=== PATIENT | male | born 1970 | race Caucasian/White ===

== ENCOUNTER 2020-11-12 08:07 | Outpatient (CLI) | payer OTHER, SELFPAY | END 2020-11-12 08:08 | disposition home or self-care (01) | LOC: ANHCOVIDVC 08:08 | PROVIDERS: PCP Emergency Medicine | DX: Z23 Encounter for immunization (principal) | CPT/HCPCS: 0001A; 91300 ==

== ENCOUNTER 2020-12-03 08:06 | Outpatient (CLI) | payer OTHER, SELFPAY | END 2020-12-03 08:07 | disposition home or self-care (01) | LOC: ANHCOVIDVC 08:06 | PROVIDERS: PCP Emergency Medicine | DX: Z23 Encounter for immunization (principal) | CPT/HCPCS: 0002A; 91300 ==

== ENCOUNTER 2021-11-08 18:02 | Observation (INO) | payer OTHER, SELFPAY ==
[2021-11-08] VITALS (8 sets, daily range): BP systolic 152–195; BP diastolic 101–127; PULSE 71–89; RESP 16–20; TEMP 36.4; O2SAT 97–99
--- NOTE | ~2021-11-08 | CT_ITS ---
EXAMINATION: CT brain wo con INDICATION: Left arm paresthesias, history of hypertension COMPARISON: None TECHNIQUE: Standard unenhanced head CT. The dose-length product (DLP) was 605.33 mGy-cm. The mA was a djusted according to patient size. Iterative reconstruction technique was employed. FINDINGS: There is no intracranial hemorrhage, acute infarction, or abnormal mass lesion. The ventric les are normal. There is no abnormal mass effect or midline shift. The lea-white matter differentiat ion is normal. The basal cisterns are patent. The orbits are normal. The paranasal sinuses, mastoids and calvarium are normal. IMPRESSION: 1. No acute intracranial abnormality. Reviewed, dictated and finalized at location F.
--- NOTE | ~2021-11-08 | XR_ITS ---
EXAMINATION: XR chest 2V DATE: 11/08/2021 18:57 INDICATION: Left-sided chest pressure TECHNIQUE: PA and lateral views of the chest are obtained. COMPARISON: None available FINDINGS: The lungs are free of acute opacities. There is no pleural effusion or pneumothorax. The ca rdiomediastinal silhouette is normal. There is mild thoracic spondylosis. IMPRESSION: 1. No acute cardiopulmonary abnormality. Reviewed, dictated and finalized at location F.
--- NOTE | 2021-11-08 18:13 | ECG_ITS ---
Measurements Intervals [place] Rate: 67 P: 34 OR: 182 QRS: 10 QRSD: 109 T: 32 QT: 363 QTc: 386 Interpretive Statements SINUS RHYTHM WITH MARKED SINUS ARRHYTHMIA NO PREVIOUS ECG AVAILABLE FOR COMPARISON Electronically Signed On 11-10-2021 13:11:30 CDT by Lazara Sepulveda M.D.
--- NOTE | 2021-11-08 18:43 | ED.CHESTPAIN ---
HPI - Chest Pain General Chief Complaint: Chest Pain <CASEY Hale Last Filed: 11/08/21 22:07> Stated Complaint: chest pain <CASEY Hale Last Filed: 11/08/21 22:07> Time Seen by Provider: 11/08/21 18:31 <CASEY Hale Last Filed: 11/08/21 22:07> Source: patient <CASEY Hale Last Filed: 11/08/21 22:07> Mode of arrival: ambulatory <CASEY Hale Last Filed: 11/08/21 22:07> Limitations: no limitations <CASEY Hale Last Filed: 11/08/21 22:07> History of Present Illness HPI narrative: This is a 51-year-old male that presents to the emergency department for hypertension. Reports over the last 3 days he has noted his blood pressure to be elevated to the 150s-180s systolic. This has been associated with some intermittent left-sided chest discomfort that he describes as a pinch. No known alleviating or exacerbating factors. Also reports he has had some paresthesias and left arm. Reports past history of hypertension, but he is not currently on any medications for this. Denies shortness of breath, lower extremity edema, or any other focal numbness or weakness. <CASEY Hale Last Filed: 11/08/21 22:07> Related Data Home Medications: Home Medications Medication Instructions Recorded Confirmed No Home Medications 11/08/21 11/08/21 <CASEY Hale Last Filed: 11/08/21 22:07> Allergies/Adverse Reactions: Allergies Allergy/AdvReac Type Severity Reaction Status Date / Time No Known Allergies Allergy Verified 11/08/21 19:44 <CASEY Hale Last Filed: 11/08/21 22:07> Review of Systems Review of Systems: CONSTITUTIONAL: Denies fever CARDIOVASCULAR: Reports chest pain. Denies edema. RESPIRATORY: Denies dyspnea. NEUROLOGIC: Denies numbness, or weakness. <CASEY Hale Last Filed: 11/08/21 22:07> All systems reviewed & are unremarkable except as noted in HPI and below <Tammy Ramires PA-C - Last Filed: 11/08/21 22:07> [facility] Past Medical History Medical History: Medical History Essential (primary) hypertension <Tammy Ramires PA-C - Last Filed: 11/08/21 22:07> Family History Family History: Family History Father , 62 No problems noted. Mother , 64 No problems noted. <Tammy Ramires PA-C - Last Filed: 11/08/21 22:07> Social History Social History: Social History Smoking packs per day: 1 Smoking cigarettes per day: 20.0 Years smoked: 30 Smoking pack-years: 30.00 Smoking status: Current every day smoker Tobacco type: cigarettes Alcohol intake: current Drinks per week: 6 Alcohol use details: Patient drinks a six pack on Monday's Substance use: never <Tammy Ramires PA-C - Last Filed: 11/08/21 22:07> Exam Narrative: GENERAL: Well-appearing, well-nourished, and in no acute distress. HEAD: Normocephalic, atraumatic. EYES: PERRLA and EOMI. ENT: Nares clear, no rhinorrhea or epistaxis. Mucous membranes moist. Oropharynx without tonsillar hypertrophy exudate or other lesions. Bilateral TMs pearly lea non-bulging NECK: Supple. No adenopathy or masses. CHEST: Clear to auscultation. No respiratory distress. No wheezes rales or rhonchi HEART: Regular rate and rhythm. No murmur heard. Normal peripheral pulses. EXTREMITIES: Normal range of motion. No edema. Strength equal in bilateral upper extremities (5/5) SKIN: Warm, dry, no rash. NEURO: No focal deficits. Alert and oriented x3. Cranial nerves II through XII grossly intact PSYCH: Normal mood and affect <Tammy Ramires PA-C - Last Filed: 11/08/21 22:07> Course NURSERYPERSON/PA Physician Supervision Patient seen and examined. No acute distress Regular rate and rhythm
[2021-11-08 19:35] LABS: Basophils Absolute Auto 0.1 K/mm3 (0.0-0.1); Basophils Percent Auto 0.7 % (0.2-1.2); Eosinophils Absolute Auto 0.2 K/mm3 (0-0.3); Eosinophils Percent Auto 1.9 % (0-4.4); Hematocrit 48.2 % (42.0-52.0); Hemoglobin 15.9 g/dL (14.0-18.0); Immature Granulocyte Absolute 0.03 K/mm3 (0.00-0.031); Immature Granulocyte Percent A 0.3 % (0-0.5); Lymphocytes Absolute Auto 2.37 K/mm3 (0.9-3.2); Lymphocytes Percent Auto 22.1 % (18.3-44.2); Mean Corpuscular Hemoglobin 29.4 pg (26-34); Mean Corpuscular Volume 89.1 fl (80-100); Mean Platelet Volume 11.1 fl (7.4-10.4); Monocytes Absolute Auto 0.8 K/mm3 (0.1-0.6); Monocytes Percent Auto 7.6 % (2.6-8.5); Neutrophils Absolute Auto 7.3 K/mm3 (1.3-6.7); Neutrophils Percent Auto 67.4 % (45.5-73.1); Platelet Count Result 238 k/mm3 (150-375); Red Blood Count 5.41 M/mm3 (4.6-6.20); White Blood Count 10.7 K/mm3 (4.5-10.0)
[2021-11-08] MEDS: hydrALAZINE HCL 20 MG/ML VIAL 10 MG IV PUSH (19:36)
[2021-11-08 19:43] LABS: Alanine Aminotransferase 25 U/L (4-50); Alkaline Phosphatase 45 U/L (38-126); Anion Gap 7 mmol/L (8-16); Aspartate Amino Transferase 29 U/L (17-59); Blood Urea Nitrogen 22 mg/dL (9-20); Calcium 8.6 mg/dL (8.4-10.2); Carbon Dioxide 26 mmol/L (22-30); Chloride 108 mmol/L (98-107); Estimated CRCL calculation 69 ml/min; Estimated Glomerular Filt Rate 50; Glucose 100 mg/dL (65-110); Lipase 84 U/L (23-300); Potassium 3.7 mmol/L (3.4-5.0); Sodium 141 mmol/L (137-145)
[2021-11-08 19:45] LABS: Prothrombin Time 12.8 Seconds (11.1-14.7)
[2021-11-08 19:46] LABS: Partial Thromboplastin Time 24.4 SECONDS (22.3-36.8)
[2021-11-08 19:55] LABS: Troponin I < 0.012 ng/mL (0.000-0.034)
[2021-11-08] MEDS: LABETALOL HCL INJ 100 MG/20 ML VIAL 20 MG IV PUSH (20:58)
--- NOTE | 2021-11-08 22:02 | PM.IMHP ---
H&P: HPI History of Present Illness Date/Time: 11/08/21 22:02 Chief Complaint: CHEST PAIN. Narrative: This is a 51-year-old male with past medical history significant for hypertension, tobacco dependence. Patient presented to the emergency room due to chest pain for the last 2 days or so, blurry vision, frontal headache, high blood pressure, pain is localized to the epigastric area it is nonradiating rate said I had 5 to 6/10 in intensity it is pressure-like, denies lightheadedness, nausea, vomiting, shortness of breath, cough, sputum production, no fevers no rigors no chills, no leg swelling, no calves pain, no PND, no orthopnea. Preliminary workup has been essentially nonrevealing however patient was found to have elevated blood pressure upon arrival to emergency room with systolic ranging from the 180s to 190s and diastolic ranging in the 100s. Patient has been admitted for further evaluation, management and treatment. Review of Systems Review of Systems: Chest pain localized to retrosternal and epigastric area Constitutional: Constitutional: Denies chills, Denies fatigue, Denies fever(s), Denies malaise, Denies night sweats and Denies weakness Eyes: Eyes: Reports blurry vision ENT: Denies dysphagia, Denies vertigo, Denies dizziness, Denies nasal congestion, Denies nasal discharge, Denies nasal obstruction and Denies odynophagia Cardiovascular: Cardiovascular: Reports chest pain, Denies pedal edema, Denies edema, Denies leg edema, Denies lightheadedness, Denies radiating jaw, neck or arm pain, Denies palpitations, Denies dyspnea on exertion and Denies orthopnea Respiratory: Respiratory: Denies cough, Denies excessive phlegm production and Denies wheezing Gastrointestinal: Gastrointestinal: Denies dyspepsia, Denies heartburn, Denies nausea and Denies vomiting Genitourinary: Genitourinary: Denies dysuria and Denies flank pain Integumentary/Breasts: Skin/Breast: Denies rash Neurologic: Denies focal weakness and Denies Sensory deficit (Neuro) Psychiatric: Psychiatric: Reports no additional psychiatric complaints and Reports as per HPI Endocrine: Endocrine: Denies cold intolerance, Denies fatigue, Denies flushing, Denies heat intolerance, Denies polyphagia, Denies polydipsia and Denies palpitations Hematologic/Lymphatic: Hematologic/Lymphatic: Reports no additional hematologic/lymphatic complaints and Reports as per HPI Allergic/Immunologic: Allergic/Immunologic: Reports no additional allergic/immunologic complaints and Reports as per HPI PMFSH Past Medical History Medical History Essential (primary) hypertension Family History Family History Father , 62 No problems noted. Mother , 64 No problems noted. Social History Social History Smoking packs per day: 0.5 Smoking cigarettes per day: 10.0 Years smoked: 20 Smoking pack-years: 10.00 Smoking status: Heavy tobacco smoker Tobacco type: cigarettes Second hand tobacco smoke exposure: Yes Alcohol intake: current Drinks per week: 6 Alcohol use details: Patient drinks a six pack on Monday' Substance use: never Spiritual care concerns: No Meds Home Medications and Allergies Home Medications Medication Instructions Recorded Confirmed Type No Home Medications 11/08/21 11/08/21 History Allergies Allergy/AdvReac Type Severity Reaction Status Date / Time No Known Allergies Allergy Verified 11/08/21 19:44 Vital Signs Vital Signs - 24 hr 11/08/21 18:21 11/08/21 19:30 11/08/21 19:42 Temperature 97.6 F Pulse Rate 88 71 84 Respiratory Rate 16 20 Blood Pressure 179/119 H 184/127 H Pulse Oximetry 99 97 11/08/21 19:46 11/08/21 21:01 11/08/21 21:36 Temperature Pulse Rate 85 89 80 Respiratory Rate 16 18 Blood Pressure 19
[2021-11-08 22:35] LABS: Troponin I < 0.012 ng/mL (0.000-0.034)
[2021-11-09] VITALS (16 sets, daily range): BP systolic 126–186; BP diastolic 78–104; PULSE 66–104; RESP 16–22; TEMP 36.3–37.3; O2SAT 95–100; BMI 33.7
--- NOTE | 2021-11-09 | ECHO_ITS ---
Patient Info Name: Mohinder Carpenter Age: 51 years : 1970 Gender: Male Ht: 72 in Wt: 249 lbs BSA: 2.43 m2 HR: 80 bpm BP: 158 / 104 mmHg Heart Rhythm: Sinus Rhythm Technical Quality: Fair Exam Date: 11/09/2021 12:53 PM Exam Location: [facility] Pulmonary Patient Status: Inpatient Admit Date: 11/08/2021 Staff Ordering Physician: Juani Alvarenga MD Utilities Service Investigator: Soraya Baker RDCS Attending Provider: Martinez Long MD Exam Type: CA echo doppler color flow Study Info Indications - uncontrolled htn Complete two-dimensional, color flow and Doppler transthoracic echocardiogram is performed. Summary 1. Complete two-dimensional, color flow and Doppler transthoracic echocardiogram is performed. 2. Left ventricular chamber dimension is normal. 3. Left ventricular systolic function is normal, estimated at 65-70%. 4. There is mildly increased left ventricular wall thickness. 5. The left ventricular diastolic function is grade I diastolic dysfunction. 6. No pulmonary hypertension, estimated pulmonary arterial systolic pressure is 16 mmHg. Left Ventricle Tissue doppler E/e' is not performed. Left ventricular chamber dimension is normal. Left ventricular systolic function is normal, estimated at 65-70%. There is mildly increased left ventricular wall thickness. The left ventricular diastolic function is grade I diastolic dysfunction. Right Ventricle Right ventricular systolic function is normal and with normal TAPSE 2.1 cm. Right ventricular chamber dimension is normal. Left Atria Left atrial chamber dimension is normal. Right Atria Right atrial chamber dimension is normal. Aortic Valve The aortic valve is trileaflet. There is no aortic valve stenosis. There is no aortic valve regurgitation. Pulmonic Valve There is no pulmonic regurgitation. Mitral Valve There is no mitral valve stenosis. There is no mitral valve regurgitation. Tricuspid Valve There is no tricuspid valve regurgitation. No pulmonary hypertension, estimated pulmonary arterial systolic pressure is 16 mmHg. Pericardium/Pleural There is no pericardial effusion. Inferior Vena Cava Normal inferior vena cava with >50% collapse upon inspiration consistent with normal right atrial pressure, 5 mmHg. Aorta The aortic root size at the sinus of Valsalva is normal. Left Ventricular Outflow Tract Name Value Normal LVOT 2D LVOT Diameter 2.1 cm LVOT Doppler LVOT Peak Gradient 4 mmHg LVOT Mean Gradient 2 mmHg LVOT VTI 18 cm LVOT VTI/AV VTI Ratio 0.8 LVOT Stroke Volume 65 ml LVOT CO 5.9 l/min LVOT CI 2.4 l/min/m2 Pulmonic Valve Name Value Normal RVOT Doppler
[2021-11-09 01:03] LABS: Troponin I < 0.012 ng/mL (0.000-0.034)
[2021-11-09] MEDS: lisinopriL 20 MG TABLET 40 MG PO (01:43)
[2021-11-09] MEDS: hydrALAZINE HCL 20 MG/ML VIAL 10 MG IV PUSH ×2 (01:43→11:27)
--- NOTE | 2021-11-09 03:10 | PC.NURSE ---
This patient, Mohinder Carpenter, was admitted to IMU status, and placed in IMU Room 205-01. Patient/family oriented to hospital policies and general routines including ID bracelet, bed and alarms, visiting hours, pain management, procedures, bathroom and other care routines, personal items, smoking policy, room service/diet, and visiting hours. Valuables list has been completed. Information on how to activate the Rapid Response Team has been discussed. Patient/Family are encouraged to report perceived risks to care and to ask questions if they do not understand what they are told or what they should do.
--- NOTE | 2021-11-09 16:36 | PM.IMPN ---
Progress Note: A&P Assessment and Plan (1) Hypertensive urgency: Code(s): I16.0 - Hypertensive urgency Status: Acute Assessment and Plan: Admitted to IMU Started on lisinopril 40 p.o. daily Patient has been lisinopril before but was not taking it Considering adding a calcium channel prem as 2nd agent Continue to monitor Cardiology consult Echocardiogram in a.m. 11/09/2021 interval history: 51 year old male with history of hypertension patient states he has not taken his medication close to 10 years he presented emergency department with complaint of chest pain and urgently elevated her blood pressure off systolic 180-190, patient received labetalol and lisinopril upon arrival which did improve his blood pressure, will start the patient on amlodipine 5 mg q.day, patient blood pressure is trending down, recent cardiac enzymes are negative there are no acute changes on EKG DE is ruled out, his chest pain is improved, with a cardiac echo if there are no significant structural changes will discharge the patient home tomorrow. (2) Chest pain: Qualifiers: Chest pain type: unspecified Qualified Code(s): R07.9 - Chest pain, unspecified Code(s): R07.9 - Chest pain, unspecified Status: Acute Assessment and Plan: Likely secondary to uncontrolled hypertension EKG with no acute changes Continue to monitor (3) Essential (primary) hypertension: Code(s): I10 - Essential (primary) hypertension Status: Acute Assessment and Plan: Continue lisinopril Continue to monitor (4) Tobacco dependence: Code(s): F17.200 - Nicotine dependence, unspecified, uncomplicated Status: Acute Assessment and Plan: Nicotine patch as needed Subjective Date/time seen: 11/09/21 16:36 Chief Complaint: CHEST PAIN. Narrative: This is a 51-year-old male with past medical history significant for hypertension, tobacco dependence. Patient presented to the emergency room due to chest pain for the last 2 days or so, blurry vision, frontal headache, high blood pressure, pain is localized to the epigastric area it is nonradiating rate said I had 5 to 6/10 in intensity it is pressure-like, denies lightheadedness, nausea, vomiting, shortness of breath, cough, sputum production, no fevers no rigors no chills, no leg swelling, no calves pain, no PND, no orthopnea. Preliminary workup has been essentially nonrevealing however patient was found to have elevated blood pressure upon arrival to emergency room with systolic ranging from the 180s to 190s and diastolic ranging in the 100s. Patient has been admitted for further evaluation, management and treatment. 11/09/2021 interval history: 51 year old male with history of hypertension patient states he has not taken his medication close to 10 years he presented emergency department with complaint of chest pain and urgently elevated her blood pressure off systolic 180-190, patient received labetalol and lisinopril upon arrival which did improve his blood pressure, will start the patient on amlodipine 5 mg q.day, patient blood pressure is trending down, recent cardiac enzymes are negative there are no acute changes on EKG DE is ruled out, his chest pain is improved, with a cardiac echo if there are no significant structural changes will discharge the patient home tomorrow. Review of Systems Review of Systems: All systems reviewed & are unremarkable except as noted in HPI and below Exam Narrative: moderately obese Patient is comfortable, NAD HEENT: eyes are clear and none icteric LUNGS: normal respiratory effort ABD: not distended Lower extremities: no edema SKIN: nonjaundiced Neuro: grossly intact. Objective Data Vital Signs Vital Signs: Vital Signs - 24 hr 11/08/21 18:21 11/08/21 19:30 11/08/21 19:42 Temperature 97.6 F Pulse Rate 88 71 84 Respiratory Rate 16 20 Blood Pressure 179/119 H 184/127 H Pulse Oximetry 99 97 11/08/21
--- NOTE | 2021-11-09 18:56 | PC.NURSE ---
This patient, Mohinder Carpenter, was transferred to [facility] on 11/09/21 at 1800. Personal belongings sent with patient. Report given to Hoda BANG. Appropriate documentation sent with patient.
[2021-11-09] MEDS: HEPARIN SODIUM 5,000 UNITS/ML VIAL 5000 UNITS SUB-Q (20:15)
[2021-11-10] VITALS: PULSE 70; PULSE 78; RESP 16; O2SAT 98
[2021-11-10 03:23] VITALS: BP 135/93; PULSE 69; RESP 14; TEMP 36.6; O2SAT 98
[2021-11-10 04:00] VITALS: PULSE 63; RESP 14; O2SAT 98
[2021-11-10 05:47] LABS: Hematocrit 49.1 % (42.0-52.0); Hemoglobin 15.7 g/dL (14.0-18.0); Mean Corpuscular Hemoglobin 29.6 pg (26-34); Mean Corpuscular Volume 92.5 fl (80-100); Mean Platelet Volume 10.7 fl (7.4-10.4); Platelet Count Result 251 k/mm3 (150-375); Red Blood Count 5.31 M/mm3 (4.6-6.20); Red Cell Distribution Width 13.2 % (11.5-14.5)
[2021-11-10 05:58] LABS: Anion Gap 4 mmol/L (8-16); Blood Urea Nitrogen 19 mg/dL (9-20); Calcium 8.5 mg/dL (8.4-10.2); Carbon Dioxide 28 mmol/L (22-30); Chloride 110 mmol/L (98-107); Estimated CRCL calculation 101 ml/min; Estimated Glomerular Filt Rate > 60; Glucose 107 mg/dL (65-110); Potassium 4.3 mmol/L (3.4-5.0); Sodium 142 mmol/L (137-145)
[2021-11-10 08:00] VITALS: PULSE 97
[2021-11-10] MEDS: amLODIPine BESYLATE 5 MG TABLET PO (08:34)
[2021-11-10] MEDS: HEPARIN SODIUM 5,000 UNITS/ML VIAL 5000 UNITS SUB-Q (08:34)
--- NOTE | 2021-11-10 09:03 | PM.DS ---
DS: Admitting Diagnosis Discharge Date 11/10/2021 Admitting Diagnosis Chest pain DS: Discharge Diagnosis Discharge Diagnosis (1) Hypertensive urgency: Code(s): I16.0 - Hypertensive urgency Status: Acute Assessment and Plan: Admitted to IMU Started on lisinopril 40 p.o. daily Patient has been lisinopril before but was not taking it Considering adding a calcium channel prem as 2nd agent Continue to monitor Cardiology consult Echocardiogram in a.m. 11/09/2021 interval history: 51 year old male with history of hypertension patient states he has not taken his medication close to 10 years he presented emergency department with complaint of chest pain and urgently elevated her blood pressure off systolic 180-190, patient received labetalol and lisinopril upon arrival which did improve his blood pressure, will start the patient on amlodipine 5 mg q.day, patient blood pressure is trending down, recent cardiac enzymes are negative there are no acute changes on EKG SC is ruled out, his chest pain is improved, with a cardiac echo if there are no significant structural changes will discharge the patient home tomorrow. (2) Chest pain: Qualifiers: Chest pain type: unspecified Qualified Code(s): R07.9 - Chest pain, unspecified Code(s): R07.9 - Chest pain, unspecified Status: Acute Assessment and Plan: Likely secondary to uncontrolled hypertension EKG with no acute changes Continue to monitor (3) Essential (primary) hypertension: Code(s): I10 - Essential (primary) hypertension Status: Acute Assessment and Plan: Continue lisinopril Continue to monitor (4) Tobacco dependence: Code(s): F17.200 - Nicotine dependence, unspecified, uncomplicated Status: Acute Assessment and Plan: Nicotine patch as needed DS: Summary Hospital Course Reason for hospitalization: Chief Complaint: CHEST PAIN. Narrative: This is a 51-year-old male with past medical history significant for hypertension, tobacco dependence. Patient presented to the emergency room due to chest pain for the last 2 days or so, blurry vision, frontal headache, high blood pressure, pain is localized to the epigastric area it is nonradiating rate said I had 5 to 6/10 in intensity it is pressure-like, denies lightheadedness, nausea, vomiting, shortness of breath, cough, sputum production, no fevers no rigors no chills, no leg swelling, no calves pain, no PND, no orthopnea. Preliminary workup has been essentially nonrevealing however patient was found to have elevated blood pressure upon arrival to emergency room with systolic ranging from the 180s to 190s and diastolic ranging in the 100s. Patient has been admitted for further evaluation, management and treatment. Hospital Course: 11/09/2021 interval history: 51 year old male with history of hypertension patient states he has not taken his medication close to 10 years he presented emergency department with complaint of chest pain and urgently elevated her blood pressure off systolic 180-190, patient received labetalol and lisinopril upon arrival which did improve his blood pressure, will start the patient on amlodipine 5 mg q.day, patient blood pressure is trending down, recent cardiac enzymes are negative there are no acute changes on EKG SC is ruled out, his chest pain is improved, with a cardiac echo if there are no significant structural changes will discharge the patient home tomorrow. today patient remains clinically stable, started the patient on amlodipine, blood pressure is trending, is cardiac echo is essentially normal will discharge the patient today. Status at Discharge Functional status at discharge: independent ambulation Overall status at discharge: patient is back to baseline Time Spent with Patient Time attestation: Total time spent providing and/or coordinating discharge services: Patient was seen and examined at the time of the discharge
== END 2021-11-10 10:11 | disposition home or self-care (01) ==
LOC: ANHED 22:04 → ANHIMU 11-09 03:09 → ANH3MED 11-10 09:03 → ANHIMU 11-11 15:18
PROVIDERS: Emergency Medicine; Admitting Provider Internal Medicine; Emergency Provider Emergency Medicine; PCP Emergency Medicine; Visit Provider Family Medicine
DX: I16.0 Hypertensive urgency (principal); R07.9 Chest pain, unspecified; I10 Essential (primary) hypertension; F17.210 Nicotine dependence, cigarettes, uncomplicated
CPT/HCPCS: 36415; 70450; 71046; 80048; 80053; 83690; 84484; 85025; 85027; 85610; 85730; 93005; 93306; 96372; 96374; 96375; 96376; 99285; A9270; G0378; J0360; J1644

== ENCOUNTER 2022-11-04 10:09 | Outpatient (CLI) | payer OTHER, SELFPAY ==
[2022-11-04 11:29] LABS: Alanine Aminotransferase 25 U/L (6-50); Albumin Level 4.1 g/dL (3.5-5.1); Alkaline Phosphatase 48 U/L (38-126); Anion Gap 7 mmol/L (8-16); Aspartate Amino Transferase 20 U/L (17-59); Bilirubin,Total 1.4 mg/dL (0.2-1.3); Blood Urea Nitrogen 18 mg/dL (9-20); Calcium 8.5 mg/dL (8.4-10.2); Carbon Dioxide 28 mmol/L (22-30); Chloride 106 mmol/L (98-107); Cholesterol 129 mg/dL (0-200); Estimated Glomerular Filt Rate > 60; Glucose 118 mg/dL (65-110); HDL Direct 28 mg/dL; Potassium 3.4 mmol/L (3.4-5.0); Sodium 141 mmol/L (137-145); Triglycerides 71 mg/dL (<150)
[2022-11-04 11:41] LABS: LDL Cholesterol Direct 84 mg/dL
== END 2022-11-04 10:10 | disposition home or self-care (01) ==
LOC: ANHLAB 10:12
PROVIDERS: PCP Emergency Medicine; Visit Provider Emergency Medicine
DX: I10 Essential (primary) hypertension (principal); Z12.5 Encounter for screening for malignant neoplasm of prostate; Z13.220 Encounter for screening for lipoid disorders
CPT/HCPCS: 36415; 80053; 80061; 84153; G0103

== ENCOUNTER 2023-06-09 09:09 | Emergency (ER) | payer OTHER, SELFPAY ==
--- NOTE | ~2023-06-09 | CT_ITS ---
EXAMINATION: CT soft tissue neck w con DATE: 06/09/2023 11:18 INDICATION: One week of right posterior ear pain extending into the neck TECHNIQUE: Computed tomography (CT) of the neck was performed with 75 mL Omnipaque-350 intravenous co ntrast. Automated exposure control and iterative reconstruction technique were employed. The dose-mohan gth product was 633.32 mGy-cm. COMPARISON: Head CT dated 11/08/2021 FINDINGS: Orbits are normal. Visualized portions of the brain are normal. The paranasal sinuses are clear. Like ly chronic bilateral nasal bone fractures which are deviated slightly towards the left. There is righ tward bowing of the nasal septum which conforms to the contours of the turbinates. Bilateral mastoid air cells and middle ear cavities are also clear. Bilateral temporomandibular joints are normal align ment with minimal osteoarthritis. There is a large expansile nonaggressive appearing lytic lesion lik brandt representing a dentigerous cyst surrounding the crown of the impacted posterior most left mandibu lar molar. This fills the medullary space of the posterior body of the left mandible endosteal scallo ping, mild on the lateral and inferior cortices and more prominently on the cephalad and particularly inwardly bowed medial cortices. Bilateral submandibular and parotid glands are symmetric. There are couple right thyroid nodules, the larger and more density nodule measures 1.7 cm in maximal diameter. There are scattered normal-sized lymph nodes in the neck, no lymphadenopathy. No masses identified. The vasculature is patent and normal in caliber. Airway is unremarkable. Superior mediastinum is unr emarkable. Lung apices are normal. Mild cervicothoracic dextrocurvature with minimal spondylosis. IMPRESSION: 1. No etiology identified for reported right posterior ear and neck pain. The bilateral mastoid air c ells and middle ear cavities are clear. 2. 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 Given the size and degree of cortical erosion is replaced the endplate increased risk of pathol ogic fracture at this location. 3. A couple right thyroid nodules the larger measuring 1.7 cm. Consider follow-up thyroid ultrasound for risk stratification. Reviewed, dictated and finalized at location A. [facility] IMPRESSION: 1. No etiology identified for reported right posterior ear and neck pain. The b ilateral mastoid air cells and middle ear cavities are clear. 2. 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 Given the size and degree of cortical erosion is re placed the endplate increased risk of pathologic fracture at this location. 3. A couple right thyroid nodules the larger measuring 1.7 cm. Consider follow- up thyroid ultrasound for risk stratification.
[2023-06-09 09:13] VITALS: BP 143/92; PULSE 76; RESP 16; TEMP 36.8; O2SAT 99
--- NOTE | 2023-06-09 10:13 | ED.EAR ---
HPI - Ear Problem General Chief complaint: Ear <CASEY Paulino Last Filed: 06/09/23 18:50> Stated complaint: ear pain <CASEY Paulino Last Filed: 06/09/23 18:50> Time Seen by Provider: 06/09/23 09:19 <CASEY Paulino Last Filed: 06/09/23 18:50> Source: patient <CASEY Paulino Last Filed: 06/09/23 18:50> Mode of arrival: ambulatory <CASEY Paulino Last Filed: 06/09/23 18:50> Limitations: no limitations <CASEY Paulino Last Filed: 06/09/23 18:50> History of Present Illness HPI Narrative: Patient is a 52 y/o male who presents to the ED with c/o R ear pain. Patient reports having pain to his right posterior inferior ear, radiating around his jaw/neck for the last 1 week. Pain is intermittent, states pain occurs at random times. Denies known aggravating factors. Does worsen with laying on R side of face. Denies significant pain with chewing/eating/opening and closing mouth. Describes as throbbing/pressure. Does not describe pain as electric shock type pain. Does report some improvement with ibuprofen, which he took prior to arrival. Denies ear drainage, fevers, recent illness, congestion/rhinorrhea. No dental issues/dental pain. <CASEY Paulino Last Filed: 06/09/23 18:50> Related Data Allergies/adverse reactions: Allergies Allergy/AdvReac Type Severity Reaction Status Date / Time No Known Allergies Allergy Verified 06/09/23 09:09 <CASEY Paulino Last Filed: 06/09/23 18:50> Review of Systems Review of Systems: CONSTITUTIONAL: Denies fever, chills, or sweats. ENT: See HPI. RESPIRATORY: Denies cough or dyspnea. SKIN: Denies rash or itching. NEUROLOGIC: Denies headache, numbness, or weakness. <CASEY Paulino Filed: 06/09/23 18:50> All systems reviewed & are unremarkable except as noted in HPI and below <Virginia Clarke PA-C - Last Filed: 06/09/23 18:50> [facility] Past Medical History Medical History: Medical History Essential (primary) hypertension <Virginia Clarke PA-C - Last Filed: 06/09/23 18:50> Family History Family History: Family History Father , 62 No problems noted. Mother , 64 No problems noted. <Virginia Clarke PA-C - Last Filed: 06/09/23 18:50> Social History Social History: Social History Smoking packs per day: 0.5 Smoking cigarettes per day: 10.0 Years smoked: 20 Smoking pack-years: 10.00 Smoking status: Heavy tobacco smoker Tobacco type: cigarettes Second hand tobacco smoke exposure: Yes Alcohol intake: current Drinks per week: 6 Alcohol use details: Patient drinks a six pack on Monday's Substance use: never Spiritual care concerns: No <Virginia Clarke PA-C - Last Filed: 06/09/23 18:50> Exam Narrative: GENERAL: Well appearing, obese with BMI of 33.9, non-toxic, in no acute distress. HEAD: Normocephalic, atraumatic. ENT: External ear normal. R TM appears slightly bulging but non erythematous. Small amount of cerumen present in ear canal, no swelling or erythema of EAC. No drainage. No significant tenderness with manipulation of ear pinna. No pain with palpation of tragus. No significant TTP along posterior ear. No swelling/erythema/bulging of mastoid. No significant TMJ tenderness. No tenderness along upper lower gumline on the right side, no fractured teeth or evidence of focal abscess. L ear and TM appear unremarkable. NECK: Supple. No adenopathy palpated along submandibular region or anterior chain, no masses. RESPIRATORY: Airway patent, respirations nonlabored. CARDIOVASCULAR: Regular rate and rhythm without murmurs, rubs, or gallops. Radial pul
[2023-06-09 10:45] LABS: Basophils Absolute Auto 0.1 K/mm3 (0.0-0.1); Basophils Percent Auto 0.6 % (0.2-1.2); Eosinophils Absolute Auto 0.2 K/mm3 (0-0.3); Eosinophils Percent Auto 1.9 % (0-4.4); Hematocrit 45.4 % (42.0-52.0); Hemoglobin 14.9 g/dL (14.0-18.0); Immature Granulocyte Percent A 0.9 % (0-0.5); Lymphocytes Absolute Auto 2.45 K/mm3 (0.9-3.2); Mean Corpuscular HGB Conc 32.8 g/dl (32-36); Mean Corpuscular Hemoglobin 29.2 pg (26-34); Mean Platelet Volume 10.4 fl (7.4-10.4); Monocytes Percent Auto 8.4 % (2.6-8.5); Neutrophils Absolute Auto 7.8 K/mm3 (1.3-6.7); Neutrophils Percent Auto 67.2 % (45.5-73.1); Platelet Count Result 256 k/mm3 (150-375); White Blood Count 11.7 K/mm3 (4.5-10.0)
[2023-06-09 10:56] LABS: Anion Gap 7 mmol/L (8-16); Blood Urea Nitrogen 21 mg/dL (9-20); Calcium 9.1 mg/dL (8.4-10.2); Carbon Dioxide 28 mmol/L (22-30); Chloride 106 mmol/L (98-107); Estimated CRCL calculation 84 ml/min; Estimated Glomerular Filt Rate > 60; Glucose 109 mg/dL (65-110); Potassium 3.4 mmol/L (3.4-5.0); Sodium 141 mmol/L (137-145)
== END 2023-06-09 12:45 | disposition home or self-care (01) ==
PROVIDERS: Emergency Provider Physician Assistant; PCP Emergency Medicine
DX: H92.01 Otalgia, right ear (principal); K01.1 Impacted teeth; E04.1 Nontoxic single thyroid nodule; I10 Essential (primary) hypertension; F17.210 Nicotine dependence, cigarettes, uncomplicated
CPT/HCPCS: 36415; 70491; 80048; 85025; 99284; Q9967

== ENCOUNTER 2024-02-13 12:37 | Emergency (ER) | payer OTHER, SELFPAY ==
[2024-02-13 12:39] VITALS: BP 162/96; PULSE 72; RESP 16; TEMP 36.7; O2SAT 98
[2024-02-13] MEDS: methocarbamoL 500 MG TABLET 1500 MG PO (14:25)
[2024-02-13] MEDS: ACETAMINOPHEN 500 MG TABLET 1000 MG PO (14:25)
[2024-02-13] MEDS: IBUPROFEN 400 MG TABLET 800 MG PO (14:26)
[2024-02-13] MEDS: dexAMETHasone SOD PHOS INJ 10 MG/ML 1 ML VIAL IM (14:27)
--- NOTE | 2024-02-13 14:27 | ED.BACK ---
HPI - Back Pain/Injury General Chief Complaint: Back Pain/Injury Stated Complaint: lower R back pain that radiates to hip Time Seen by Provider: 02/13/24 13:36 History of Present Illness HPI Narrative: This is a 53-year-old male with no significant pertinent past medical history who presents today with a chief complaint of right-sided hip pain radiating down his right buttock. Patient states that it occurs when he moves in certain directions and he has been having a difficult time walking to work today. He states it is described as a stabbing sensation just below his right buttock pain going down to his right thigh. His on the posterior aspect does not radiate to his groin or up to his back. Says any chest pain, shortness a bath, fever, chills. He has been taking Tylenol home with alleviation of his symptoms but states that has been going on for 3 days he wanted to get evaluated at the request of his PCP. Denies any GI or symptoms otherwise. States this has happened before but this is the most severe recurrence of his pain. Has not seen anybody for sciatic or lumbago hip pain in the past. Denies any traumatic injuries or twisting injuries. Related Data Allergies Allergy/AdvReac Type Severity Reaction Status Date / Time No Known Allergies Allergy Verified 02/13/24 12:39 Review of Systems Review of Systems: As reviewed above in the [facility] Past Medical History Medical History Essential (primary) hypertension Family History Family History Father , 62 No problems noted. Mother , 64 No problems noted. Social History Social History Smoking packs per day: 0.5 Smoking cigarettes per day: 10.0 Years smoked: 20 Smoking pack-years: 10.00 Smoking status: Heavy tobacco smoker Tobacco type: cigarettes Second hand tobacco smoke exposure: Yes Alcohol intake: current Drinks per week: 6 Alcohol use details: Patient drinks a six pack on Monday's Substance use: never Spiritual care concerns: No Exam Narrative: GENERAL: [Well-appearing, well-nourished, and in no acute distress.] HEAD: [Normocephalic, atraumatic.] EYES: [PERRLA and EOMI.] ENT: Nares clear, no rhinorrhea or epistaxis. Mucous membranes moist. NECK: Supple. CHEST: [Clear to auscultation. No respiratory distress.] HEART: [Regular rate and rhythm]. No murmur heard. [Normal peripheral pulses.] ABDOMEN: [Soft, nondistended], [nontender], [No rigidity or guarding] EXTREMITIES: Normal range of motion. [No edema.] Straight leg raise elicits pain in the right lower extremity. Full strength and mobility. Ambulating without significant pain. No CT or L-spine. No step-offs deformities. SKIN: Warm, dry, no rash. NEURO: [No focal deficits]. Alert and oriented [x3.]. EHL and FHL strength 5/5. Able to flex and extend at the hip and knee without difficulty. Normal sensation. No saddle anesthesia. PSYCH: [Normal mood and affect.] Course Vital Signs Vital signs: Vital Signs Temperature 36.7 C 02/13/24 12:39 Pulse Rate 72 02/13/24 12:39 Respiratory Rate 16 02/13/24 12:39 Blood Pressure 162/96 H 02/13/24 12:39 Pulse Oximetry 98 02/13/24 12:39 Oxygen Delivery Room Air 02/13/24 12:39 Temperature 36.7 C 02/13/24 12:39 Pulse Rate 72 02/13/24 12:39 Respiratory Rate 16 02/13/24 12:39 Blood Pressure 162/96 H 02/13/24 12:39 Pulse Oximetry 98 02/13/24 12:39 Oxygen Delivery Room Air 02/13/24 12:39 MDM - Back Pain/Injury MDM Narrative Medical decision making narrative: This is a 53-year-old male with no past medical history who presents with sciatica type pain in his right lower extremity. He has a reassuring physical examination and unremarkable neurological assessment. No red fl
[2024-02-13] MEDS: LIDOCAINE 5% PATCH 1 PATCH TRANSDERM (14:32)
== END 2024-02-13 15:24 | disposition home or self-care (01) ==
PROVIDERS: Emergency Provider Student in an Organized Health Care Education/Training Program; PCP Emergency Medicine
DX: M54.40 Lumbago with sciatica, unspecified side (principal); I10 Essential (primary) hypertension; F17.210 Nicotine dependence, cigarettes, uncomplicated
CPT/HCPCS: 96372; 99283; A9270; J1100

== ENCOUNTER 2024-03-16 11:12 | Outpatient (CLI) | payer OTHER, SELFPAY ==
--- NOTE | ~2024-03-16 | XR_ITS ---
XR hip RT 2V w AP pelvis 03/16/2024 11:44 Indication: Right hip pain Procedure: AP pelvis and 2 views right hip Comparison: No prior studies for comparison. Findings: Pelvic rings are intact. There is osteoarthritis of the hips, right greater than left. No a cute fracture or traumatic malalignment. No soft tissue abnormality. Impression: 1: Osteoarthritis of the hips, right greater than left. Reviewed, dictated and finalized at location B. Impression: 1: Osteoarthritis of the hips, right greater than left.
[2024-03-16 11:48] LABS: Alanine Aminotransferase 27 U/L (6-50); Albumin Level 4.2 g/dL (3.5-5.1); Alkaline Phosphatase 50 U/L (38-126); Anion Gap 9 mmol/L (4-12); Aspartate Amino Transferase 21 U/L (17-59); Bilirubin,Total 0.8 mg/dL (0.2-1.3); Blood Urea Nitrogen 19 mg/dL (9-20); Calcium 8.8 mg/dL (8.4-10.2); Carbon Dioxide 26 mmol/L (22-30); Chloride 105 mmol/L (98-107); Cholesterol 139 mg/dL (0-200); Estimated Glomerular Filt Rate > 60; Glucose 188 mg/dL (65-110); HDL Direct 34 mg/dL; Potassium 3.4 mmol/L (3.4-5.0); Sodium 140 mmol/L (137-145); Triglycerides 115 mg/dL (<150)
[2024-03-16 11:58] LABS: LDL Cholesterol Direct 85 mg/dL
[2024-03-16 12:14] LABS: Prostate Specific Antigen 1.2 ng/mL (< OR = 4.0); Vitamin D 25 Hydroxy 24.5 ng/mL
== END 2024-03-16 11:13 | disposition home or self-care (01) ==
PROVIDERS: PCP Emergency Medicine; Visit Provider Emergency Medicine
DX: E78.5 Hyperlipidemia, unspecified (principal); Z12.5 Encounter for screening for malignant neoplasm of prostate; E55.9 Vitamin D deficiency, unspecified; M25.551 Pain in right hip; M16.0 Bilateral primary osteoarthritis of hip
CPT/HCPCS: 36415; 73502; 80053; 80061; 82306; 84153; G0103

== ENCOUNTER 2024-11-29 14:34 | Emergency (ER) | payer OTHER, SELFPAY ==
--- NOTE | ~2024-11-29 | XR_ITS ---
XR chest 2V 11/29/2024 14:58 Indication: Syncope. Procedure: 2 view chest Comparison: 11/08/2021 Findings: Heart size normal. Left basilar atelectasis/scarring unchanged. No acute focal pneumonia, e jessica, pleural effusion or pneumothorax. Impression: 1: No acute cardiopulmonary disease. Reviewed, dictated and finalized at location A. Impression: 1: No acute cardiopulmonary disease.
--- NOTE | ~2024-11-29 | CT_ITS ---
EXAMINATION: CT abdomen pelvis wo con DATE: 11/30/2024 00:44 INDICATION: Right flank pain TECHNIQUE: Computed tomography (CT) of the abdomen and pelvis was performed without intravenous contr ast. Automated exposure control and iterative reconstruction technique were employed. The dose-length product was 1294.12 mGy-cm. COMPARISON: 03/16/2015 FINDINGS: Lung bases are clear. Heart size is normal. No pericardial or pleural effusion. Liver, gallbladder, s pleen, pancreas and bilateral adrenal glands are normal. There are 2 mm nonobstructing stones at the upper poles of both the left and right kidneys. No ureteral stones or hydronephrosis. Bowels includin g the appendix are normal. Bladder is normal. No free intraperitoneal gas or fluid. No pathologically enlarged abdominal or pelvic lymphadenopathy. Chronic appearing to mild anterior wedging of a few lo wer thoracic and upper lumbar vertebral bodies with mild lower thoracic spondylosis. IMPRESSION: 1. Bilateral nonobstructing nephrolithiasis. Reviewed, dictated and finalized at location A.
--- NOTE | ~2024-11-29 | XR_ITS ---
XR ribs RT 2V Ordering provider: Sarah Gorman APRN History: . right posterior rib pain . Comparison: None. FINDINGS: BONES: No acute right rib fracture or fracture of the visualized osseous structures. LUNGS: No effusions or infiltrates. No pneumothorax. SOFT TISSUES: Normal. IMPRESSION: No right rib fracture . Reviewed, dictated and finalized at location A. IMPRESSION: No right rib fracture .
--- NOTE | 2024-11-29 14:38 | ECG_ITS ---
Test Date: 2024-11-29 21:40:46 Measurements Intervals [place] Rate: 72 P: 33 RI: 192 QRS: 6 QRSD: 107 T: 3 QT: 388 QTc: 427 Interpretive Statements SINUS RHYTHM POSSIBLE LEFT ATRIAL ENLARGEMENT [-0.1mV P WAVE IN V1/V2] LOW QRS VOLTAGE IN PRECORDIAL LEADS [QRS DEFLECTION < 1.0 mV IN CHEST LEADS] PATTERN CONSISTENT WITH PULMONARY DISEASE ABNORMAL ECG No previous ECG available for comparison Electronically Signed On 11-30-2024 08:07:25 CDT by Joseph Berger M.D.
--- OUTSIDE RECORDS SUMMARY | 2024-11-29 14:43 | XMS_ITS | Clinical Summary ---
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 Indications: High Blood Pressure Active metoprolol Succinate (TOPROL-XL) 25 MG TABLET SR 24 HRIndications:Hyper tension Take 25 mg by mouth daily. Indications: High Blood Pressure Activ e Aspirin 81 MG Tablet Take 81 mg by mouth daily. Active ranitidine (ZANTAC) 150 MG TabletIndications:S ymptomatic Gastroesophageal Reflux Disease (Inactive) Take 150 mg by mouth as needed for Heartburn. Indications: Gastroesophageal Reflux Disease with Current Symptoms Active predniSONE (DELTASONE) 20 MG Tablet Take 2 Tabs by mouth daily. 10 Tab 018 Active albuterol (PROAIR HFA) 108 (90 Base) MCG/ACT Aerosol Solution take 2 Puffs by inhalation every 4 hours as needed for Wheezing. 8.5 g 018 Active Active Problems Problem Noted Date Diagnosed Date MARI (obstructive sleep apnea) 08/05/2015 Immunizations Immunization Administration Dates Next Due TDAP Vaccine 07/10/2024 Family History Medical History Relation Name Comments No Known Problems Brother Diabetes Father Cancer Maternal Grandfather Chronic Obstructive Pulmonary Disease Maternal Grandmo ther Hypertension Maternal Grandmother Cancer Mother No Known Problems Paternal Grandfather No Known Problems Paternal Grandmother No Known Problems Sister Relation Name Status Comments Brother Alive Father Maternal Grandfather Maternal Grandmother Alive Mother Paternal Grandfather Paternal Grandmother Sister Alive Social History Tobacco Use Types Packs/Day Years Used Date Smoking Tobacco: Every Day Cigarettes 1.5 20 Smokeless Tobacco: Former Quit: 12/26/2012 Alcohol Use Standard Drinks/Week Comments No 0 (1 standard drink = 0.6 oz pur e alcohol) Occasionally Sex and Gender Information Value Date Recorded Sex Assigned at Not on file Legal Sex Male 12:29 AM CDT Gender Identity Not on file Sexual Orientation Not on file Last Filed Vital Signs Vital Sign Reading Time Taken Comments Blood Pressure 206/123 07/10/2024 1:17 PM [employer] [employer] Pulse 90 07/10/2024 1:17 PM [employer] Temperature 36.9 C (98.4 F) 07/10/2024 12:15 PM [employer]IL [employer] Respiratory Rate 20 07/10/2024 12:15 PM [employer] Oxygen Saturation 98% 07/10/2024 1:17 PM TAIL [employer] Inhaled Oxygen Concentration - - Weight 120.2 kg (265 lb) 07/10/2024 12:15 PM TAIL [employer] Height 182.9 cm (6') 07/10/2024 12:15 PM [employer] [employer] Body Mass Index 35.94 07/10/2024 12:15 PM TAIL [employer] Plan of Treatment Health Maintenance Due Date Last Done Comments Hepatitis C Virus (HCV) Screening 1970 Hepatitis B Immunization (1 of 3 - 19+ 3-dose series) 10/29/1990 Pneumococcal Immunization (5 0+ years) (1 of 2 - PCV) 10/29/1990 Colonoscopy 10/29/2016 Colorectal Cancer Screening 10/29/2016 Cologuard 10/29/2021 Immunochemical Fecal Occult Blood 10/29/2021 Zoster Immunization (1 of 2) 10/29/2021 Influenza Immunization (#1) 03/17/202404/17, 03/24/2016, 04/30/2015 SARS-COV-2 Immunization ( season) 2024 12/03/2020, 11/12/2020 Td Immunization Every 10 Yea rs (Adults With 1 Tdap) 07/10/2034 07/10/2024 Respiratory Syncytial Virus (RSV) Immunization (Adult) (1 - 1-dose 75+ series) 10/29/2046 DTaP/Tdap/Td Immunization Discontinued 07/10/2024 TdaP Immunization Discontinued 07/10/2024 Meningococcal Immunization (ACWY) Aged Out No longer eligible based on patient's age to complete this topic Rotavirus Immunization Aged Out No lo nger eligible based on patient's age to complete this topic Insurance 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
[2024-11-29 15:18] VITALS: BP 131/76; PULSE 74; RESP 16; TEMP 36.4; O2SAT 99
--- NOTE | 2024-11-29 16:39 | ED_ITS ---
HPI - General Adult General Chief complaint: Syncope <Sarah Gorman [employer] - Last Filed: 11/29/24 19:13> Stated complaint: Syncopal episode x 1-dizziness,confusion(1000) <Sarah Gorman [employer] - Last Filed: 11/29/24 19:13> Time Seen by Provider: 11/29/24 16:39 <Sarah Lopez November, [employer] - Last Filed: 11/29/24 19:13> Focused HPI: Mohinder Carpenter is a 54 y/o male who presents with reports of being on the toilet having a BM and started to have severe dizziness and then passed out fell off the toilet on to the floor. He states that when he came to on the floor he still felt very dizzy and then had BM on the floor he got up then felt very dizzy again. He states that he had a couple more episodes of dizziness then once it subsided he went and layed down on the bed, fell asleep and woke up with severe right lower right flank pain . No longer dizzy, but still having a lot of right lower back pain worse with movement. He states that he has lost about 20 lbs in 2 months unintentionally but states he sweats a lot at work GENERAL: Well-appearing, well-nourished, and in no acute distress. HEAD: Normocephalic, atraumatic. CHEST: Clear to auscultation. No respiratory distress. HEART: Regular rate and rhythm. NEURO: Alert and oriented x3. Patient screened in triage and initial orders placed. Additional care and disposition to be based upon diagnostic testing and treatment. <Sarah Lopez November, [employer] - Last Filed: 11/29/24 19:13> History of Present Illness HPI narrative: Agree with the HPI above. Patient has been asymptomatic since arrival to the emergency department. Denies any anticoagulation use, denies any headache. Only complaint right now is right-sided paraspinal muscle pain. <Domenico Junior MD - Last Filed: 11/30/24 02:09> Related Data Allergies/adverse reactions: Allergies Allergy/AdvReac Type Severity Reaction Status Date / Time No Known Allergies Allergy Verified 11/29/24 14:36 <Sarah Gorman [employer] - Last Filed: 11/29/24 19:13> Review of Systems 2 Review of Systems: As reviewed above in HPI <Domenico Junior MD - Last Filed: 11/30/24 02:09> PMFSH Past Medical History Medical History: Medical History Chest pain Essential (primary) hypertension <Sarah Gorman [employer] - Last Filed: 11/29/24 19:13> Family History Family History: Family History Father , 62 No problems noted. Mother , 64 No problems noted. <Sarah Gorman [employer] - Last Filed: 11/29/24 19:13> Social History Social History: Social History Smoking packs per day: 0.5 Smoking cigarettes per day: 10.0 Years smoked: 20 Smoking pack-years: 10.00 Smoking status: Heavy tobacco smoker Tobacco type: cigarettes Second hand tobacco smoke exposure: Yes Alcohol intake: current Drinks per week: 6 Alcohol use details: Patient drinks a six pack on Substance use: never Do You Feel Safe in your Home?: Yes Lack of Transportation: No Lack of Food: Never True Current Housing: I Have Housing Concerned About Future Housing: No Difficulty Paying Gas/Electric Bills: No Difficulty Paying for Meds: No Currently Unemployed: No Education: High School Diploma/GED Difficulty w/ Childcare or Family Care: No Spiritual care concerns: No <Sarah Gorman, [employer] - Last Filed: 11/29/24 19:13> Exam 2 Narrative: GENERAL: [Well-appearing, well-nourished, and in no acute distress.] HEAD: [Normocephalic, atraumatic.] EYES: [PERRLA and EOMI.] ENT: Nares clear, no rhinorrhea or epistaxis. Mucous membranes moist. NECK: Supple. CHEST: [Clear to auscultation. No respiratory distress.] HEART: [Regular rate and rhythm]. No murmur heard. [Normal peripheral pulses.] ABDOMEN: [Soft, nondistended], [nontender], [No rigidity or guarding] right- sided low back/paraspinal/flank pain without any overlying skin changes or bruises EXTREMITIES: Normal range of motion. [No edema.] SKIN: Warm, dry, no rash. NEURO: [No focal deficits]. Alert and oriented [x3.] PSYCH: [Normal mood and affect.] <Domenico Junior MD - Last Filed: 11/30/24 02:09> Course Vital Signs Vital signs: Vital Signs Temperature 36.4 C 11/29/24 15:18 Pulse Rate 74 11/29/24 15:18 Respiratory Rate 16 11/29/24 15:18 Blood Pressure 131/76 11/29/24 15:18 Pulse Oximetry 99 11/29/24 15:18 Oxygen Delivery Room Air 11/29/24 15:18 Temperature 36.7 C 11/29/24 21:42 Pulse Rate 78 11/29/24 21:42 Respiratory Rate 18 11/29/24 21:42 Blood Pressure 130/82 11/29/24 21:42 Pulse Oximetry 100 11/29/24 21:42 Oxygen Delivery Room Air 11/29/24 15:18 <Sarah Gorman, [employer] - Last Filed: 11/29/24 19:13> Vital Signs Temperature 36.4 C 11/29/24 15:18 Pulse Rate 74 11/29/24 15:18 Respiratory Rate 16 11/29/24 15:18 Blood Pressure 131/76 11/29/24 15:18 Pulse Oximetry 99 11/29/24 15:18 Oxygen Delivery Room Air 11/29/24 15:18 Temperature 36.7 C 11/29/24 21:42 Pulse Rate 78 11/29/24 21:42 Respiratory Rate 18 11/29/24 21:42 Blood Pressure 130/82 11/29/24 21:42 Pulse Oximetry 100 11/29/24 21:42 Oxygen Delivery Room Air 11/29/24 15:18 <Domenico Junior MD - Last Filed: 11/30/24 02:09> Medical Decision Making MDM Narrative Medical decision making narrative: 54-year-old male presenting to the emergency department after vasovagal event. Patient states he was bearing down to have a bowel movement and then felt incredibly lightheaded and dizzy and lost consciousness briefly. Did not hit his head her or take any anticoagulation medications. Symptoms have resolved and he is only complain of some right-sided low back pain but does not sure if he hit it on anything. Was otherwise doing well without any recent illnesses or injuries. Denies any chest pain, shortness a breath, upper abdominal pain, left-sided pain, kidney stones history, nausea, vomiting. Suspicion presently is for vasovagal event secondary to bearing down for a bowel movement. His right-sided low back pain could be musculoskeletal or kidney injury versus less likely intra-abdominal process such as a hematoma or intra- abdominal infection/bleeding. Laboratory studies were obtained as well as a CT scan without contrast. Patient is provided morphine and a fluid bolus while workup underway. CBC, CMP, EKG and chest x-ray obtained, right-sided rib series ordered in triage. EKG shows sinus rhythm, no ST segment elevations, depressions or ectopy. Normal QTC interval. Patient's workup shows a leukocytosis of 13.8, hemoglobin of 12.8 without any recent to compare to, normal platelet count. Patient's electrolytes are largely unremarkable, minor hypokalemia but not severe. Normal creatinine, normal glucose, normal LFTs. Chest x-ray shows no acute cardiopulmonary disease. Rib series shows no fractures. CT of the abdomen and pelvis shows nonobstructing renal calculi without any hydronephrosis or ureteral calculus. No abnormalities in the liver spleen pancreas or gallbladder, no evidence of bowel obstruction, appendicitis or diverticulitis. No fluid collections or inflammatory reactions. Patient is improved from a pain control standpoint given his unremarkable workup can be safely discharged home at this time with as needed pain medications and muscle relaxers for his right-sided back pain. Patient given return precautions and discharge. <Domenico Junior MD - Last Filed: 11/30/24 02:09> Medical Records Medical records reviewed: Yes I reviewed the external patient's medical records. <Domenico Junior MD - Last Filed: 11/30/24 02:09> Vital Signs Vital Signs: Vital Signs Temperature 36.4 C 11/29/24 15:18 Pulse Rate 74 11/29/24 15:18 Respiratory Rate 16 11/29/24 15:18 Blood Pressure 131/76 11/29/24 15:18 Pulse Oximetry 99 11/29/24 15:18 Oxygen Delivery Room Air 11/29/24 15:18 Temperature 36.7 C 11/29/24 21:42 Pulse Rate 78 11/29/24 21:42 Respiratory Rate 18 11/29/24 21:42 Blood Pressure 130/82 11/29/24 21:42 Pulse Oximetry 100 11/29/24 21:42 Oxygen Delivery Room Air 11/29/24 15:18 <Sarah Gorman APRN - Last Filed: 11/29/24 19:13> Vital Signs Temperature 36.4 C 11/29/24 15:18 Pulse Rate 74 11/29/24 15:18 Respiratory Rate 16 11/29/24 15:18 Blood Pressure 131/76 11/29/24 15:18 Pulse Oximetry 99 11/29/24 15:18 Oxygen Delivery Room Air 11/29/24 15:18 Temperature 36.7 C 11/29/24 21:42 Pulse Rate 78 11/29/24 21:42 Respiratory Rate 18 11/29/24 21:42 Blood Pressure 130/82 11/29/24 21:42 Pulse Oximetry 100 11/29/24 21:42 Oxygen Delivery Room Air 11/29/24 15:18 <Domenico Junior MD - Last Filed: 11/30/24 02:09> Lab Data Lab results reviewed: Yes I reviewed the patient's lab results. <Domenico Junior MD - Last Filed: 11/30/24 02:09> Result diagrams: 11/29/24 21:48 11/29/24 21:48 <Sarah Gorman APRN - Last Filed: 11/29/24 19:13> Labs: Lab Results 11/29/24 Range/Units 21:48 WBC 13.8 H (4.5-10.0) K/mm3 RBC 4.37 L (4.6-6.20) M/mm3 Hgb 12.8 L (14.0-18.0) g/dL Hct 39.9 L (42.0-52.0) % MCV 91.3 (80-100) fl MCH 29.3 (26-34) pg MCHC 32.1 (32-36) g/dl RDW 13.4 (11.5-14.5) % Plt Count 290 (150-375) k/mm3 MPV 10.6 H (7.4-10.4) fl Immature Gran % (Auto) 0.4 (0-0.5) % Neut % (Auto) 70.9 (45.5-73.1) % Lymph % (Auto) 19.3 (18.3-44.2) % [place] % (Auto) 7.1 (2.6-8.5) % Eos % (Auto) 1.9 (0-4.4) % Baso % (Auto) 0.4 (0.2-1.2) % Lymph # (Auto) 2.66 (0.9-3.2) K/mm3 [place] # (Auto) 1.0 H (0.1-0.6) K/mm3 Eos # (Auto) 0.3 (0-0.3) K/mm3 Baso # (Auto) 0.1 (0.0-0.1) K/mm3 Abs Immat Gran (auto) 0.05 H (0.00-0.031) K/mm3 Absolute Neuts (auto) 9.8 H (1.3-6.7) K/mm3 Absolute Nucleated RBC 0.000 (0.0-0.012) K/mm3 Nucleated RBC % 0.0 (0.0-0.2) % Sodium 140 (137-145) mmol/L Potassium 3.1 L (3.4-5.0) mmol/L Chloride 105 (98-107) mmol/L Carbon Dioxide 26 (22-30) mmol/L Anion Gap 9 (4-12) mmol/L BUN 28 H (9-20) mg/dL Creatinine 1.06 (0.7-1.3) mg/dL Estim Creat Clear Calc 93 ml/min Estimated GFR > 60 (59 - ) Glucose 154 H (65-110) mg/dL Calcium 8.9 (8.4-10.2) mg/dL Total Bilirubin 0.7 (0.2-1.3) mg/dL AST 25 (17-59) U/L ALT 25 (6-50) U/L Alkaline Phosphatase 55 (38-126) U/L Total Protein 7.0 (6.3-8.2) g/dL Albumin 4.1 (3.5-5.1) g/dL <Sarah Gorman, [employer] - Last Filed: 11/29/24 19:13> Lab Results 11/29/24 Range/Units 21:48 WBC 13.8 H (4.5-10.0) K/mm3 RBC 4.37 L (4.6-6.20) M/mm3 Hgb 12.8 L (14.0-18.0) g/dL Hct 39.9 L (42.0-52.0) % MCV 91.3 (80-100) fl MCH 29.3 (26-34) pg MCHC 32.1 (32-36) g/dl RDW 13.4 (11.5-14.5) % Plt Count 290 (150-375) k/mm3 MPV 10.6 H (7.4-10.4) fl Immature Gran % (Auto) 0.4 (0-0.5) % Neut % (Auto) 70.9 (45.5-73.1) % Lymph % (Auto) 19.3 (18.3-44.2) % [place] % (Auto) 7.1 (2.6-8.5) % Eos % (Auto) 1.9 (0-4.4) % Baso % (Auto) 0.4 (0.2-1.2) % Lymph # (Auto) 2.66 (0.9-3.2) K/mm3 [place] # (Auto) 1.0 H (0.1-0.6) K/mm3 Eos # (Auto) 0.3 (0-0.3) K/mm3 Baso # (Auto) 0.1 (0.0-0.1) K/mm3 Abs Immat Gran (auto) 0.05 H (0.00-0.031) K/mm3 Absolute Neuts (auto) 9.8 H (1.3-6.7) K/mm3 Absolute Nucleated RBC 0.000 (0.0-0.012) K/mm3 Nucleated RBC % 0.0 (0.0-0.2) % Sodium 140 (137-145) mmol/L Potassium 3.1 L (3.4-5.0) mmol/L Chloride 105 (98-107) mmol/L Carbon Dioxide 26 (22-30) mmol/L Anion Gap 9 (4-12) mmol/L BUN 28 H (9-20) mg/dL Creatinine 1.06 (0.7-1.3) mg/dL Estim Creat Clear Calc 93 ml/min Estimated GFR > 60 (59 - ) Glucose 154 H (65-110) mg/dL Calcium 8.9 (8.4-10.2) mg/dL Total Bilirubin 0.7 (0.2-1.3) mg/dL AST 25 (17-59) U/L ALT 25 (6-50) U/L Alkaline Phosphatase 55 (38-126) U/L Total Protein 7.0 (6.3-8.2) g/dL Albumin 4.1 (3.5-5.1) g/dL <Domenico Junior MD - Last Filed: 11/30/24 02:09> Imaging Data Attestation: I personally reviewed and interpreted this imaging study as follows: < Domenico Junior MD - Last Filed: 11/30/24 02:09> My impression: Impressions Chest X-Ray 11/29/24 15:05 Impression: 1: No acute cardiopulmonary disease. Ribs X-Ray 11/29/24 17:17 IMPRESSION: No right rib fracture . <Domenico Junior MD - Last Filed: 11/30/24 02:09> Radiologist's impression: CT abdomen pelvis without contrast, 2 tiny nonobstructing kidney stones, no hydronephrosis, no ureteral calculus, no bowel obstruction, appendicitis, diverticulitis, no fluid collections or inflammation. Normal liver, spleen, pancreas, gallbladder. <Domenico Junior MD - Last Filed: 11/30/24 02:09> Discharge Plan Discharge Clinical Impression: Vasovagal syncope, Acute right-sided back pain, Musculoskeletal back pain <Sarah Gorman APRN - Last Filed: 11/29/24 19:13> Patient Disposition: Home <Sarah Gorman APRN - Last Filed: 11/29/24 19:13> Condition: Stable <Sarah Gorman APRN - Last Filed: 11/29/24 19:13> Instructions: Antibiotic Form, Syncope (ED) <Sarah Gorman APRN - Last Filed: 11/29/24 19:13> Additional Instructions: Your CT scan shows tiny nonobstructing kidney stones without any signs of kidney damage or kidney injury. No obstruction. No other acute process such as infection or inflammation in your abdomen or pelvis/back. Your imaging studies are all normal otherwise. Your laboratory studies are largely unremarkable. We will send you home with some pain control medications for your back pain. Your syncopal events likely secondary to bearing down significantly during a bowel movement and not related to any other acute process. Follow-up with regular doctor, return with any emergent concerns. <Sarah Gorman [employer] - Last Filed: 11/29/24 19:13> Patient Language: Latvian <Sarah Gorman, [employer] - Last Filed: 11/29/24 19:13> Prescriptions: New methocarbamol 500 mg tablet 500 mg PO HS Qty: 7 0RF ibuprofen 800 mg tablet 800 mg PO TID PRN (Reason: pain) Qty: 30 0RF lidocaine 5 % adhesive patch,medicated 1 patch topical DAILY Qty: 15 0RF Rx Instructions: leave on most painful area for up to 12 hrs No Action losartan-hydrochlorothiazide 50-12.5 mg tablet See Rx Instructions .ROUTE .COMPLEX Qty: 90 2RF Dose Instruction: TAKE 1 TABLET BY MOUTH DAILY Rx Instructions: TAKE 1 TABLET BY MOUTH DAILY tramadol 50 mg tablet 50 mg PO Q6H PRN (Reason: pain) Qty: 30 0RF amlodipine 10 mg tablet See Rx Instructions .ROUTE .COMPLEX Qty: 90 2RF Dose Instruction: TAKE 1 TABLET BY MOUTH DAILY Rx Instructions: TAKE 1 TABLET BY MOUTH DAILY naproxen 500 mg tablet 500 mg PO BID Qty: 180 2RF <Sarah Gorman, [employer] - Last Filed: 11/29/24 19:13> Follow-up/Referrals: Dereck Carranza MD [Primary Care Provider] - <Sarah Gorman APRN - Last Filed: 11/29/24 19:13> Time of Disposition: 02:07 <Sarah Gorman [employer] - Last Filed: 11/29/24 19:13> 02:07 <Domenico Junior MD - Last Filed: 11/30/24 02:09>
[2024-11-29 21:42] VITALS: BP 130/82; PULSE 78; RESP 18; TEMP 36.7; O2SAT 100
[2024-11-29 22:01] LABS: Basophils Absolute Auto 0.1 K/mm3 (0.0-0.1); Basophils Percent Auto 0.4 % (0.2-1.2); Eosinophils Absolute Auto 0.3 K/mm3 (0-0.3); Eosinophils Percent Auto 1.9 % (0-4.4); Hematocrit 39.9 % (42.0-52.0); Hemoglobin 12.8 g/dL (14.0-18.0); Immature Granulocyte Absolute 0.05 K/mm3 (0.00-0.031); Immature Granulocyte Percent A 0.4 % (0-0.5); Lymphocytes Absolute Auto 2.66 K/mm3 (0.9-3.2); Lymphocytes Percent Auto 19.3 % (18.3-44.2); Mean Corpuscular HGB Conc 32.1 g/dl (32-36); Mean Corpuscular Hemoglobin 29.3 pg (26-34); Mean Corpuscular Volume 91.3 fl (80-100); Mean Platelet Volume 10.6 fl (7.4-10.4); Monocytes Percent Auto 7.1 % (2.6-8.5); Neutrophils Absolute Auto 9.8 K/mm3 (1.3-6.7); Neutrophils Percent Auto 70.9 % (45.5-73.1); Platelet Count Result 290 k/mm3 (150-375); Red Blood Count 4.37 M/mm3 (4.6-6.20); Red Cell Distribution Width 13.4 % (11.5-14.5); White Blood Count 13.8 K/mm3 (4.5-10.0)
[2024-11-29 22:11] LABS: Alanine Aminotransferase 25 U/L (6-50); Albumin Level 4.1 g/dL (3.5-5.1); Alkaline Phosphatase 55 U/L (38-126); Anion Gap 9 mmol/L (4-12); Aspartate Amino Transferase 25 U/L (17-59); Bilirubin,Total 0.7 mg/dL (0.2-1.3); Blood Urea Nitrogen 28 mg/dL (9-20); Calcium 8.9 mg/dL (8.4-10.2); Carbon Dioxide 26 mmol/L (22-30); Chloride 105 mmol/L (98-107); Estimated CRCL calculation 93 ml/min; Estimated Glomerular Filt Rate > 60; Glucose 154 mg/dL (65-110); Potassium 3.1 mmol/L (3.4-5.0); Sodium 140 mmol/L (137-145)
[2024-11-30 00:01] VITALS: BP 118/74; PULSE 64; RESP 17; O2SAT 98
--- OUTSIDE RECORDS SUMMARY | 2024-11-30 00:24 | XMS_ITS | Clinical Summary ---
Author Organization [facility] Address [address], [facility] [address] [place] [address] Phone Care Team Providers Care Talent Acquisition Partner Name Role Phone Dereck Carranza MD Primary Care Provider [phone] Allergies No known active allergies Medications lisinopril [...] Comments Blood Pressure 206/123 07/10/2024 1:17 PM BRUSHER Pulse 90 07/10/2024 1:17 PM BRUSHER Temperature 36.9 C (98.4 F) 07/10/2024 12:15 PM BRUSHER Respiratory Rate 20 07/10/2024 12:15 PM BRUSHER Oxygen Saturation 98% 07/10/2024 1:17 PM BRUSHER Inhaled Oxygen Concentration - - Weight 120.2 kg (265 lb) 07/10/2024 12:15 PM BRUSHER Height 182.9 cm (6') 07/10/2024 12:15 PM BRUSHER Body Mass Index 35.94 07/10/2024 12:15 PM BRUSHER Plan of Treatment Health Maintenance Due Date [...] patient's age to complete this topic Insurance [facility] Care Teams Talent Acquisition Partner Relationship Specialty Start Date End Date Dereck Carranza MD [id number] [place], [place] [id number] PCP - General Internal Medicine 05/28/20
[2024-11-30] MEDS: MORPHINE SULFATE (*CRX) 4 MG/ML INJ IV PUSH (00:51)
[2024-11-30] MEDS: LACTATED RINGERS 1,000 ML 999 ML IV CONT (00:54)
[2024-11-30 01:01] VITALS: BP 120/84; PULSE 62; RESP 15; O2SAT 99
[2024-11-30 02:01] VITALS: BP 128/80; PULSE 63; RESP 12; O2SAT 98
--- NOTE | 2024-11-30 02:50 | PC.NURSE ---
RN attempted to discharge pt. Pt reports they need more information. aware.
[2024-11-30 03:12] VITALS: BP 128/88; PULSE 62; RESP 12; TEMP 36.9; O2SAT 98
== END 2024-11-30 03:12 | disposition home or self-care (01) ==
PROVIDERS: Emergency Medicine; Emergency Provider Student in an Organized Health Care Education/Training Program; PCP Emergency Medicine
DX: R55 Syncope and collapse (principal); M54.9 Dorsalgia, unspecified; I10 Essential (primary) hypertension; F17.210 Nicotine dependence, cigarettes, uncomplicated
CPT/HCPCS: 36415; 71046; 71100; 74176; 80053; 85025; 93005; 96361; 96374; 99284; J2270; J7120

== ENCOUNTER 2025-05-05 13:15 | Outpatient (CLI) | payer OTHER, SELFPAY ==
[2025-05-05 14:19] LABS: Hemoglobin A1C 6.0 % (<5.7)
[2025-05-05 14:23] LABS: Alanine Aminotransferase 24 U/L (6-50); Albumin Level 4.2 g/dL (3.5-5.1); Alkaline Phosphatase 68 U/L (38-126); Anion Gap 9 mmol/L (4-12); Aspartate Amino Transferase 29 U/L (17-59); Bilirubin,Total 1.1 mg/dL (0.2-1.3); Blood Urea Nitrogen 16 mg/dL (9-20); Calcium 9.1 mg/dL (8.4-10.2); Carbon Dioxide 25 mmol/L (22-30); Chloride 106 mmol/L (98-107); Cholesterol 136 mg/dL (0-200); Estimated Glomerular Filt Rate > 60; Glucose 121 mg/dL (65-110); HDL Direct 34 mg/dL; Potassium 3.5 mmol/L (3.4-5.0); Sodium 140 mmol/L (137-145); Total Protein 7.4 g/dL (6.3-8.2); Triglycerides 86 mg/dL (<150)
[2025-05-05 14:57] LABS: Prostate Specific Antigen 1.6 ng/mL (< OR = 4.0)
== END 2025-05-05 13:16 | disposition home or self-care (01) ==
PROVIDERS: PCP Emergency Medicine; Visit Provider Emergency Medicine
DX: E55.9 Vitamin D deficiency, unspecified (principal); E78.5 Hyperlipidemia, unspecified; Z12.5 Encounter for screening for malignant neoplasm of prostate; E11.9 Type 2 diabetes mellitus without complications
CPT/HCPCS: 36415; 80053; 80061; 82306; 83036; 84153; G0103